=== PATIENT | female | born 1970 | race Caucasian/White ===

== ENCOUNTER 2016-12-11 07:52 | Emergency (ER) | payer BC ==
--- NOTE | 2016-12-11 08:56 | UC ---
Back Pain HPI - History of Current Complaint Chief Complaint: UCLowerExtremity Stated Complaint: RIGHT HIP AND LEG PAIN Time Seen by Provider: 12/11/16 08:54 - Allergies/Home Medications Allergies/Adverse Reactions: Allergies Allergy/AdvReac Type Severity Reaction Status Date / Time Clarithromycin [From Biaxin] Allergy See Comment Verified 12/11/16 08:12 Home Medications: Home Medications Amlodipine Besylate [Norvasc 5 mg tab] 5 mg PO DAILY 12/11/16 [History Confirmed 12/11/16] Atorvastatin* [Lipitor*] 40 mg PO DAILY 12/11/16 [History Confirmed 12/11/16] Ibuprofen [Advil] 800 mg PO TID PRN 12/11/16 [History Confirmed 12/11/16] Levothyroxine TAB* [Synthroid TAB*] 112 mcg PO DAILY 12/11/16 [History Confirmed 12/11/16] Liraglutide [Victoza] 18 mg SC 12/11/16 [History] Lisinopril TAB* [Prinivil TAB*] 10 mg PO DAILY 12/11/16 [History Confirmed 12/11] PARoxetine HCL TAB* [Paxil TAB*] 30 mg PO DAILY 12/11/16 [History Confirmed ] Pantoprazole TAB (NF) [Protonix TAB (NF)] 40 mg PO DAILY 12/11/16 [History Confirmed 12/11/16] Ranitidine TAB (NF) [Zantac TAB (NF)] 150 mg PO BID 12/11/16 [History Confirmed 12/11/16] clonazePAM TAB(*) [KlonoPIN TAB(*)] 0.5 mg PO DAILY 12/11/16 [History Confirmed 12/11/16] glipiZIDE TAB* [Glucotrol TAB*] 5 mg PO DAILY 12/11/16 [History Confirmed ] metFORMIN* [Glucophage 1000 MG TAB *] 1,000 mg PO BID 12/11/16 [History Confirmed 12/11/16] PMH/Surg Hx/FS Hx/Imm Hx - Surgical History Surgical History: Yes Surgery Procedure, Year, and Place: 2 . gastric bypass. C4-6 fusion. joseline - Social History Alcohol Use: None Substance Use Type: None Smoking Status (MU): Never Smoked Tobacco Physical Exam Vital Signs: Initial Vital Signs Temp 98.6 F 12/11/16 07:58 Pulse 75 12/11/16 07:58 Resp 18 12/11/16 07:58 BP 144/98 12/11/16 07:58 Pulse Ox 98 12/11/16 07:58
--- NOTE | 2016-12-11 09:10 | UC ---
Hip/Pelvis Pain - HPI Summary HPI Summary: 46 y/o female presents to the urgent care c/o RT hip pain since Sunday. She recently started walking on a daily basis to do some exercise. However Sunday, her pain became worse with bending and stretching. Pain is 6/10 at rest and 10/ 10 w/ bending. Pain radiates to her lower back and lateral side of RT leg. Pt denies numbness, tingling over the RT lower leg, bowel or urinary incontinence, SOB, chest pain, N/V/D, abdominal pain. Pt has taking Motrin to alleviate symptoms. - History Of Current Complaint Chief Complaint: UCLowerExtremity Stated Complaint: RIGHT HIP AND LEG PAIN Time Seen by Provider: 12/11/16 08:54 Hx Obtained From: Patient Hx Last Menstrual Period: Pt had a uterine ablation 2 years ago ?: No Onset/Duration: Gradual Onset, Lasting Days, Still Present Timing: Constant Severity Initially: Mild Severity Currently: Moderate Pain Intensity: 6 - rest Pain Scale Used: 0-10 Numeric Location: Discrete At: - RT hip Character Of Pain: Sharp Aggravating Factor(s): Movement Alleviating Factor(s): Rest, OTC Medications Associated Signs And Symptoms: Positive: Negative - Risk Factors Septic Arthritis Risk Factor: Negative - Allergies/Home Medications Allergies/Adverse Reactions: Allergies Allergy/AdvReac Type Severity Reaction Status Date / Time Clarithromycin [From Biaxin] Allergy See Comment Verified 12/11/16 08:12 Home Medications: Home Medications Amlodipine Besylate [Norvasc 5 mg tab] 5 mg PO DAILY 12/11/16 [History Confirmed 12/11/16] Atorvastatin* [Lipitor 40 MG*] 40 mg PO DAILY 12/11/16 [History Confirmed ] Levothyroxine TAB* [Synthorid 112 MCG TAB*] 112 mcg PO DAILY 12/11/16 [History Confirmed 12/11/16] Liraglutide [Victoza] 18 mg SC 12/11/16 [History] Lisinopril TAB* [Prinivil TAB 10 MG*] 10 mg PO DAILY 12/11/16 [History Confirmed 12/11/16] PARoxetine HCL TAB* [Paxil TAB*] 30 mg PO DAILY 12/11/16 [History Confirmed ] Pantoprazole TAB (NF) [Protonix TAB (NF)] 40 mg PO DAILY 12/11/16 [History Confirmed 12/11/16] Ranitidine TAB (NF) [Zantac TAB (NF)] 150 mg PO BID 12/11/16 [History Confirmed 12/11/16] clonazePAM TAB(*) [Klonopin TAB(*)] 0.5 mg PO DAILY 12/11/16 [History Confirmed 12/11/16] glipiZIDE TAB* [Glucotrol TAB*] 5 mg PO DAILY 12/11/16 [History Confirmed ] metFORMIN* [Glucophage 1000 MG TAB *] 1,000 mg PO BID 12/11/16 [History Confirmed 12/11/16] PMH/Surg Hx/FS Hx/Imm Hx Endocrine History: Diabetes, Hypothyroidism Cardiovascular History: Hypertension - Surgical History Surgical History: Yes Surgery Procedure, Year, and Place: 2 . gastric bypass. C4-6 fusion. joseline - Family History Known Family History: Positive: Hypertension - Social History Occupation: Employed Full-time Lives: With Family Alcohol Use: None Substance Use Type: None Smoking Status (MU): Never Smoked Tobacco Review of Systems Constitutional: Negative Skin: Negative Eyes: Negative ENT: Negative Respiratory: Negative Cardiovascular: Negative Gastrointestinal: Negative Genitourinary: Negative Motor: Negative Neurovascular: Negative Musculoskeletal: Other: - RT Hip pain s/p walking Neurological: Negative Psychological: Negative All Other Systems Reviewed And Are Negative: Yes Physical Exam Triage Information Reviewed: Yes Appearance: Well-Appearing, No Pain Distress, Well-Nourished, Obese Vital Signs: Initial Vital Signs Temp 98.6 F 12/11/16 07:58 Pulse 75 12/11/16 07:58 Resp 18 12/11/16 07:58 BP 144/98 12/11/16 07:58 Pulse Ox 98 12/11/16 07:58 Vital Signs Reviewed: Yes Eye Exam: Normal Eyes: Positive: Conjunctiva Clear - PERRLA, EOMI, fundi grossly normal ENT Exam: Normal ENT: Positive: Normal ENT inspection, Hearing grossly normal, Pharynx normal, TMs normal Dental Exam: Normal Neck exam: Normal Neck: Positive: Supple, Nontender, No Lymphadenopathy Respiratory Exam: Normal Respiratory: Positive: Chest non-tender, Lungs clear, Normal breath sounds Cardiovascular Exam: Normal Cardiovascular: Positive: RRR, No Murmur, Pulses Normal Abdominal Exam: Normal Abdomen Description: Positive: Nontender, No Organomegaly, Soft. Negative: CVA Tenderness (R), CVA Tenderness (L) Bowel Sounds: Positive: Present Musculoskeletal Exam: Normal Musculoskeletal: Positive: Other: - RT hip with point tenderness at the level of the piriformis muscle and gluteus burton. no swelling observed. Limited ROM due to pain, Pt feels relief when lower leg raised, bend and hyperabducted. Neurological Exam: Normal Psychological Exam: Normal Skin Exam: Normal Hip Injury Course/Dx - Course Course Of Treatment: 46 y/o female presents to the urgent care c/o RT hip pain since Sunday. She recently started walking on a daily basis to do some exercise. However Sunday, her pain became worse with bending and stretching. Pain is 6/10 at rest and 10/10 w/ bending. Pain radiates to her lower back and lateral side of RT leg. Pt denies numbness, tingling over the RT lower leg, bowel or urinary incontinence,SOB, chest pain, N/V/D, abdominal pain. Pt has taking Motrin to alleviate symptoms. PE performed. tendernes over the piriformis muscle and masximus gluteus. Pt Rx Naproxen PO and Flexeril PO to alleviate symptoms. Given PT referral for further evalution and treatment. Avoid exercises until symptoms resolve. Pt understood and agreed - Differential Dx/Diagnosis Differential Diagnosis/HQI/PQRI: Arthritis, Contusion, Sciatica, Sprain, Strain Provider Diagnoses: 1- RT hip pain, Piriformis syndrome - Physician Notification/Consults Discussed Patient Care With: Yudith Marmolejo - DR Marmolejo agreed withe Pt's care and treatment. Discharge - Discharge Plan Condition: Stable Disposition: HOME Prescriptions: Cyclobenzaprine TAB* [Flexeril 10 MG TAB*] 10 mg PO TID PRN #15 tab PRN Reason: Spasms Naproxen TAB* [Naprosyn 250 mg TAB*] 500 mg PO Q8H PRN #30 tab PRN Reason: Pain Patient Education Materials: Piriformis Syndrome (ED) Referrals: Dee Ardon [Primary Care Provider] - 1 Week Additional Instructions: 1-Please take medication after meals as directed to alleviate pain. Rest or do water exercise 2-F/u PT referral for further evaluation 3-If symptoms do not improve f/u w/ your Osteopath for further evaluation and treatment
[2016-12-11] MEDS ORDERED: Ketorolac INJ* 60 MG/2 ML VIAL IM ONE (09:59)
[2016-12-11 10:21] VITALS: BP 143/93
== END 2016-12-11 10:21 | disposition home or self-care (01) ==
LOC: UCCORT 07:52
DX: M25.551 Pain in right hip (principal); Z88.1 Allergy status to other antibiotic agents
CPT/HCPCS: 96372; 99202; G0463; J1885

== ENCOUNTER 2019-04-19 10:39 | Emergency (ER) | payer BC ==
--- OUTSIDE RECORDS SUMMARY | 2019-04-19 10:51 | XMS REPORT | Continuity of Care Document ---
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 Vitamin D deficiency Onset: 11/14/2011 Essential hypertension Hemalatha Pete Onset: 09/26/2017 Pure hypercholesterolemia Hemalatha Pete Onset: 09/26/2017 Liver function tests abnormal Raffy Pryor RPA Onset: 11/13/2017 Taking medication Raffy Pryor RPA Onset: 11/13/2017 Diarrhea Raffy Pryor RPA Onset: 11/13/2017 Abnormal findings diagnostic imaging Raffy Pryor RPA Onset: 11/13/2017 heart+coronary circulat Disorder of magnesium metabolism Raffy Pryor RPA Onset: 11/20/2017 Malaise and fatigue Raffy Pryor RPA Onset: 11/20/2017 Disturbance in sleep behavior Raffy Pryor RPA Onset: 11/27/2017 Social History Type Date Description Comments Sex Unknown ETOH Use Denies alcohol use Tobacco Use Start: Unknown Patient has never smoked TRIED IT A TIME OR TWO BUT THAT WAS IT Recreational Drug Use Denies Drug Use Smoking Status Reviewed: 03/12/19 Patient has never smoked TRIED IT A TIME OR TWO BUT THAT WAS IT Tattoo/Piercing Pierced ears Allergies, Adverse Reactions, Alerts Active Allergies Reaction Severity Comments Date Clarithromycin hypertension 05/10/2010 Ciprofloxacin Hydrochloride Unknown 01/13/2008 Nitrofurantoin Unknown 01/13/2008 Hydrocodone Bitartrate rash 01/13/2008 Medications Active Medications SIG Qnty Indications Ordering Date Provider Diflucan 1 every day x 1 1tabs B37.2 Yanci, 03/12/2019 150mg Tablets dose Hemalatha Naproxen 1 by mouth twice a 60tabs M54.9 WillTasneem, 03/12/2019 500mg Tablets day with food Hemalatha Azithromycin 2 today then one 6tabs J06.9 Marie, 03/05/2019 250mg daily for 5 days Aide DELIVERY TABLE OPERATOR Tablets Triamcinolone apply twice a day 454[facility] 02/11/2019 Acetonide To Rash On Neck, Hemalatha 0.1% Cream Knees, Bottom Prednisone 1 Daily For 3 Days 6tabs R21 WillTasneem, 02/11/2019 20mg Tablets Hemalatha Lidocaine HCL Apply To Affected 150ml [facility], 01/31/2019 Urethral/Mucosal Area 2 Times A Day Hemalatha 2% Gel as Needed Lantus Solostar inject 15 units at 15units [facility], 12/04/2018 bedtime Hemalatha 100Unit/ML Solution Pen-Inject Ambien 1 at bedtime 30tabs Yanci, 12/04/2018 5mg Tablets Hemalatha Tramadol HCL 1 by mouth Daily 30tabs G60.9 WillTasneem, 12/04/2018 50mg Tablets For Leg Pains Hemalatha Trulicity inject once weekly 4units Yanci, 12/04/2018 0.75mg/0.5ML Hemalatha Solution Pen-Inject Gabapentin 1 by mouth three 90caps Yanci, 10/16/2018 100mg Capsules times a day Hemalatha Topiramate 1 by mouth twice a 180tabs R51 Yanci, 10/16/2018 25mg Tablets day Hemalatha Cyclobenzaprine HCL take 1 tablet by 90tabs M54.2 Yanci, 2018 10mg mouth three times Hemalatha Tablets a day maximum daily dose of 3 Pantoprazole Sodium 1 by mouth every 90tabs Yanci, 07/04/2018 40mg day Hemalatha Tablets DR Benoit apply twice a day 50units L03.313 [facility], 06/04/2018 1% Cream as needed Hemalatha BD Pen use daily with 100units E11.65 [facility], 05/27/2018 Needle/Lexie/Ultra Victoza Hemalatha -Fine/32G X 4mm 32G X 4 mm Misc Onetouch Verio test twice a day 200units Tyler, 03/18/2018 Strips MONTSE Johnson Onetouch Ultrasoft test 2 times daily 200units Yanci, 03/18/2018 Lancets Hemalatha Mis Onetouch Verio as directed 1units E11.9 [facility]is[facility]as[facility]em, 03/18/2018 w/Device Hemalatha Kit Insulin Syringe Use With Insulin 200units Yanci, 02/26/2018 31G X Hemalatha /16" 1 ML [facility] Vitamin D 1 capsule weekly 12caps Yanci, 02/13/2018 (Ergocalciferol) Hemalatha [id number] Capsules Cyanocobalamin inject 1 3ml Marie, 01/08/2018 1000mcg/ML milliliters CHAD Noble Solution monthly Fioricet 1 by mouth three 90caps [facility], 12/18/2017 50-300-40mg times a day as Hemalatha Capsules needed Freestyle Lite Test test twice a day, 200units [facility], 12/12/2017 as needed Hemalatha Strips Atorvastatin Calcium 1 by mouth every 90tabs Tyler, 11/13/2017 40mg day Elizabeth, CAT BREEDER Tablets Lisinopril 1 by mouth every 90tabs Yanci, 10/04/2017 10mg Tablets day Hemalatha Paroxetine HCL take by mouth one 90tabs Unknown 30mg tablet daily Tablets Norvasc 1 by mouth every 90tabs Yanci, 5mg Tablets day Hemalatha Clonazepam 1 by mouth twice a 60tabs Unknown 0.5mg Tablets day as needed anxiety Metoprolol Succinate 1 by mouth every 90tabs Yanci, ER day Hemalatha 25mg Tablets ER 24HR Levothyroxine Sodium take by mouth one 90tabs Yanci, tablet daily Hemalatha 112mcg Tablets History Medications Diflucan 1 every day x 1tabs Hemalatha Pete 12/31/2018 - 150mg 1 dose 02/11/2019 Tablets Lidocaine apply to 30gm Hemalatha Pete 10/08/2018 - (Anorectal) rectal area as 01/31/2019 5% Cream needed Azithromycin 2 today, 1 6tabs H66.91 Hemalatha Pete 09/10/2018 - 250mg daily for 4 12/04/2018 Tablets days Immunizations CPT Code Status Date Vaccine Lot # [id number] Given 11/18/2014 TdaP Immunization Vital Signs Date Vital Result Comment 03/12/2019 11:00am Height 59 inches 4'11" Weight 215.00 lb BP Systolic 138 mmHg BP Diastolic 74 mmHg Heart Rate 80 /min Respiratory Rate 18 /min Pain Level Average Daily 7 BMI (Body Mass Index) 43.4 kg/m2 03/05/2019 10:30am Height 59 inches 4'11" Weight 218.00 lb BP Systolic 132 mmHg BP Diastolic 76 mmHg Heart Rate 76 /min Respiratory Rate 16 /min Pain Level Average Daily 4 BMI (Body Mass Index) 44.0 kg/m2 Results Test Acquired Date Facility Test Result H/L Range Note Laboratory test 12/24/2018 [facility] C-Peptide 3.4 ng/mL 0.8-5.2 finding Laboratory test 12/24/2018 [facility] Glucose Poc 268 mg/dL High 70- 140 finding Hemoglobin A1c 12/24/2018 [facility] Hgb A1c MFr 10.4 % High 4.0-6.0 Bld Est. average glucose Bld gHb Est-mCnc 252 mg/dL High <126 Procedures Date Code Description Status 04/30/2016 [id number] Mammogram Completed Medical Devices Description No Information Available Encounters Type Date Location Provider Dx Diagnosis Office Visit 03/05/2019 Main Office Aide Marie J06.9 Acute upper 10:00a DELIVERY TABLE OPERATOR respiratory infection, unspecified Z68.41 Body mass index (BMI) 40.0-44.9, adult Office Visit 02/11/2019 11:30a Main Office Hemalatha Pete R21 Rash and other nonspecific skin eruption Z68.41 Body mass index (BMI) 40.0-44.9, adult Office Visit 12/04/2018 8:30a Main Office Hemalatha Pete R09.02 Hypoxemia E11.65 Type 2 diabetes mellitus with hyperglycemia G60.9 Hereditary and idiopathic neuropathy, unspecified N18.3 Chronic kidney disease, stage 3 (moderate) Z68.41 Body mass index (BMI) 40.0-44.9, adult Office Visit 10/16/2018 10:00a Main Office Hemalatha Pete G60.9 Hereditary and idiopathic neuropathy, unspecified E11.65 Type 2 diabetes mellitus with hyperglycemia R51 Headache R06.2 Wheezing Z68.41 Body mass index (BMI) 40.0-44.9, adult Office Visit 09/10/2018 Main Office Hemalatha Pete H66.91 Otitis media, 11:15a unspecified, right ear M54.2 Cervicalgia Z68.41 Body mass index (BMI) 40.0-44.9, adult Assessments Date Code Description Provider 03/12/2019 B37.2 Candidiasis of skin and nail Hemalatha Pete 03/12/2019 M54.9 Dorsalgia, unspecified Hemalatha Pete 03/12/2019 Z68.41 Body mass index (BMI) 40.0-44.9, adult Hemalatha Pete 03/05/2019 J06.9 Acute upper respiratory infection, Aide Marie FNP unspecified 03/05/2019 Z68.41 Body mass index (BMI) 40.0-44.9, adult Aide Marie FNP 02/11/2019 R21 Rash and other nonspecific skin eruption Hemalatha Pete 02/11/2019 Z68.41 Body mass index (BMI) 40.0-44.9, adult Hemalatha Pete 12/04/2018 R09.02 Hypoxemia Hemalatha Pete 12/04/2018 E11.65 Type 2 diabetes mellitus with hyperglycemia Hemalatha Pete 12/04/2018 G60.9 Hereditary and idiopathic neuropathy, Hemalatha Pete unspecified 12/04/2018 N18.3 Chronic kidney disease, stage 3 (moderate) Hemalatha Pete 12/04/2018 Z68.41 Body mass index (BMI) 40.0-44.9, adult Hemalatha Pete 10/16/2018 G60.9 Hereditary and idiopathic neuropathy, Hemalatha Pete unspecified 10/16/2018 E11.65 Type 2 diabetes mellitus with hyperglycemia Yanci Hemalatha 10/16/2018 R51 Headache YanciHemalatha 10/16/2018 R06.2 Wheezing YanciHemalatha 10/16/2018 Z68.41 Body mass index (BMI) 40.0-44.9, adult Hemalatha Pete 09/10/2018 H66.91 Otitis media, unspecified, right ear YanciHemalatha 09/10/2018 M54.2 Cervicalgia YanciHemalatha 09/10/2018 Z68.41 Body mass index (BMI) 40.0-44.9, adult [facility] Plan of Treatment 03/12/2019 - Yanci EnzpqG70.2 Candidiasis of skin and nailNew Medication:Diflucan 150 mg - 1 every day x 1 doseComments:EAT AUILCTO46.9 Dorsalgia, unspecifiedNew Medication:Naproxen 500 mg - 1 by mouth twice a day with foodNew Therapy:Physical TherapyComments:HAS BEEN ON MOTRINCONT WITH ESLWDYOQWGSBBCMH68.41 Body mass index (BMI) 40.0-44.9, adult Goals 03/12/2019 - FigueroaTasneem, AhbpfT91.9 Dorsalgia, unspecifiedHAS GABAPENTIN AT HOME Functional Status Description No Information Available Mental Status Mental Condition Comment Date Status None Active Referrals Refer to Reason for Referral Status Appt Date Yasemin Matute WHEEZING Closed 12/05/2018 [address] [place] [address] [phone] Sindi Collier KIDNEY ISSUES [id number] lvm for patient w/ appt Closed 11/[id number] [facility], [address] [phone]
--- OUTSIDE RECORDS SUMMARY | 2019-04-19 10:51 | XMS REPORT | Continuity of Care Document ---
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 Vitamin D deficiency Onset: 11/14/2011 Essential hypertension Hemalatha Pete Onset: 09/26/2017 Pure hypercholesterolemia Hemalatha Pete Onset: 09/26/2017 Liver function tests abnormal Raffy Pryor RPA Onset: 11/13/2017 Taking medication Raffy Proyr RPA Onset: 11/13/2017 Diarrhea Raffy Pryor RPA [...] Use Denies Drug Use Smoking Status Reviewed: 03/05/19 Patient has never smoked TRIED IT A TIME OR TWO BUT THAT WAS IT Tattoo/Piercing Pierced ears Allergies, Adverse Reactions, Alerts Active Allergies Reaction Severity Comments Date Clarithromycin hypertension 05/10/2010 Ciprofloxacin Hydrochloride Unknown 01/13/2008 Nitrofurantoin Unknown 01/13/2008 Hydrocodone Bitartrate rash 01/13/2008 Medications Active Medications SIG Qnty Indications Ordering Date Provider Azithromycin 2 today then one 6tabs J06.9 Frank, 03/05/2019 250mg daily for 5 days CHAD Noble Tablets Triamcinolone apply twice a day 454gm R21 Yanci, 02/11/2019 Acetonide To Rash On Neck, Hemalatha 0.1% Cream Knees, Bottom Prednisone 1 Daily For 3 Days 6tabs R21 Yanci, 02/11/2019 20mg Tablets Hemalatha L[facility]CL [facility] 01/[facility]2019 Urethral/Mucosal Area 2 Times A Day Hemalatha 2% Gel as Needed Trulicity inject once weekly 4units Yanci, 12/04/2018 0.75mg/0.5ML Hemalatha Solution Pen-Inject Tramadol HCL 1 by mouth Daily 30tabs G60.9 WillTasneem, 12/04/2018 50mg Tablets For Leg Pains Hemalatha Ambien 1 at bedtime 30tabs Yanci, 12/04/2018 5mg Tablets Hemalatha Lantus Solostar inject 15 units at [facility], 12/04/2018 bedtime Hemalatha 100Unit/ML Solution Pen-Inject Gabapentin 1 by mouth three 90caps Yanci, 10/16/2018 100mg Capsules times a day Hemalatha Topiramate 1 by mouth twice a 180tabs R51 [facility], 10/16/2018 25mg Tablets day Hemalatha Cyclobenzaprine HCL take 1 tablet by 90tabs M54.2 [facility], 2018 10mg mouth three times Hemalatha Tablets a day maximum daily dose of 3 Pantoprazole Sodium 1 by mouth every 90tabs Yanci, 07/04/2018 40mg day Hemalatha Tablets DR Benoit apply twice a day 50units L03.313 [facility], 06/04/2018 1% Cream as needed Hemalatha BD Pen use daily with 100units E11.65 Yanci, 05/27/2018 Needle/Lexie/Ultra Victoza Hemalatha -Fine/32G X 4mm 32G X 4 mm Misc Onetouch Verio test twice a day 200units Jayson, 03/18/2018 Strips MONTSE Johnson Onetouch Ultrasoft test 2 times daily 200units Yanci, 03/18/2018 Lancets Hemalatha [facility] Onetouch Verio as directed 1units E11.9 Yanci, 03/18/2018 w/Device Hemalatha Kit Insulin Syringe Use With Insulin 200units Yanci, 02/26/2018 31G X Hemalatha 16" 1 ML Misc Vitamin D 1 capsule weekly 12caps Yanci, 02/13/2018 (Ergocalciferol) Hemalatha 21921Auic Capsules Cyanocobalamin inject 1 3ml Marie, 01/08/2018 1000mcg/ML milliliters Aide AIRPLANE FLIGHT ATTENDANT SUPERVISOR Solution monthly Fioricet 1 by mouth three 90caps Yanci, 12/18/2017 50-300-40mg times a day as Hemalatha Capsules needed Freestyle Lite Test test twice a day, 200units Yanci, 12/12/2017 as needed Hemalatha Strips Atorvastatin Calcium 1 by mouth every 90tabs Jayson, 11/13/2017 40mg day MONTSE Johnson Tablets Lisinopril 1 by mouth every 90tabs [...] CPT Code Status Date Vaccine Lot # [id number] Given 11/18/2014 TdaP Immunization Vital Signs Date Vital Result Comment 03/05/2019 10:30am Height 59 inches 4'11" Weight 218.00 lb BP Systolic 132 mmHg BP Diastolic 76 mmHg Heart Rate 76 /min Respiratory Rate 16 /min Pain Level Average Daily 4 BMI (Body Mass Index) 44.0 kg/m2 02/11/2019 11:39am Height 59 inches 4'11" Weight 219.00 lb BP Systolic 130 mmHg BP Diastolic 84 mmHg Heart Rate 84 /min Respiratory Rate 18 /min Pain Level Average Daily 0 Itch Is 10 BMI (Body Mass Index) 44.2 kg/m2 Results Test Acquired Date Facility Test Result H/L Range Note Laboratory test 12/24/2018 [facility] C-Peptide 3.4 ng/mL 0.8-5.2 finding Laboratory test 12/24/2018 [facility] Glucose Poc 268 mg/dL High 70- 140 finding Hemoglobin A1c 12/24/2018 [facility] Hgb A1c MFr 10.4 % High 4.0-6.0 Bld Est. average glucose Bld gHb Est-mCnc 252 mg/dL High <126 Procedures Date Code Description Status 04/30/2016 03142061 Mammogram Completed Medical Devices Description No Information Available Encounters Type Date Location Provider Dx Diagnosis Office Visit 03/05/2019 Main Office Aide Marie J06.9 Acute upper 10:00a AIRPLANE FLIGHT ATTENDANT SUPERVISOR respiratory infection, unspecified Z68.41 Body mass index [...] 40.0-44.9, adult Assessments Date Code Description Provider 03/05/2019 J06.9 Acute upper respiratory infection, Aide [...] 2 diabetes mellitus with hyperglycemia Hemalatha Pete 10/16/2018 R51 Headache Hemalatha Pete 10/16/2018 R06.2 Wheezing Hemalatha Pete 10/16/2018 Z68.41 Body mass index (BMI) 40.0-44.9, adult Hemalatha Pete 09/10/2018 H66.91 Otitis media, unspecified, right ear Hemalatha Pete 09/10/2018 M54.2 Cervicalgia Hemalatha Pete 09/10/2018 Z68.41 Body mass index (BMI) 40.0-44.9, adult Hemalatha Pete Plan of Treatment 03/05/2019 - Marie Aide, FNPJ06.9 Acute upper respiratory infection, unspecifiedNew Medication:Azithromycin 250 mg - 2 today then one daily for 5 daysComments:WASH HANDSSTEAMDRINK WATER, TEA AND KAKKYY37.41 Body mass index ( BMI) 40.0-44.9, adult Functional Status Description No Information Available Mental Status Mental Condition Comment Date Status None Active Referrals Refer to Reason for Referral Status Appt Date Yasemin Matute WHEEZING Closed 12/05/2018 [address] [place] [address] [phone] Sindi Collier KIDNEY ISSUES [id number] lvm for patient w/ appt Closed 11/26 information. TB [address] [facility], [address] [phone]
--- OUTSIDE RECORDS SUMMARY | 2019-04-19 10:51 | XMS REPORT | Continuity of Care Document ---
:1970 External Reference #:[id number] Author Name Hemalatha Pete Address [address] [place] [address] Care Team Providers Name Role Phone Braxton Blakely Care Team Information Video Control Engineer [phone] Liseth Michelle Care Team Information Video Control Engineer [phone] Lyndon Wells MD - Nephrology Care Team Information Video Control Engineer [phone] Problems Active Problems Provider Date Chest pain [...] Medications SIG Qnty Indications Ordering Date Provider Vitamin D take 1 capsule by 12caps Yanci, 03/17/2019 (Ergocalciferol) mouth weekly Hemalatha 1.25mg (40845 Ut) Capsules Diflucan 1 every day x 1 1tabs B37.2 Yanci, 03/12/2019 150mg Tablets dose Hemalatha Naproxen 1 by mouth twice a 60tabs M54.9 WillTasneem, 03/12/2019 500mg Tablets day with food Hemalatha Azithromycin 2 today then one 6tabs J06.9 Frank, 03/05/2019 250mg daily for 5 days CHAD Noble Tablets Triamcinolone apply twice a day 454gm [facility]21 [facility] 02/11/2019 Acetonide To Rash On Neck, Hemalatha 0.1% Cream Knees, Bottom Prednisone 1 Daily For 3 Days 6tabs R21 Yanci, 02/11/2019 20mg Tablets Hemalatha Lidocaine HCL Apply To Affected [facility]ml [facility], 01/31/2019 Urethral/Mucosal Area 2 Times A Day Hemalatha 2% Gel as Needed Trulicity inject once weekly 4units Yanci, 12/04/2018 0.75mg/0.5ML Hemalatha Solution Pen-Inject Tramadol HCL 1 by mouth Daily 30tabs G60.9 Yanci, 12/04/2018 50mg Tablets For Leg Pains Hemalatha Ambien 1 at bedtime 30tabs Yanci, 12/04/2018 5mg Tablets Hemalatha Lantus Solostar inject 15 units at 15units WillTasneem, 12/04/2018 bedtime Hemalatha 100Unit/ML Solution Pen-Inject Gabapentin [...] Pantoprazole Sodium 1 by mouth every 90tabs [facility], 07/04/2018 40mg day Hemalatha Tablets DR Benoit apply twice a day 50units L03.313 [facility], 06/04/2018 1% Cream as needed Hemalatha BD Pen use daily with 100units E11.65 Yanci, 05/27/2018 Needle/Lexie/Ultra Victoza Hemalatha -Fine/32G X 4mm 32G X 4 mm Misc Onetouch Verio as directed 1units E11.9 Yanci, 03/18/2018 w/Device Hemalatha Kit Onetouch Ultrasoft test 2 times daily 200units Yanci, 03/18/2018 Lancets Hemalatha Misc Onetouch Verio test twice a day 200units Tyler, 03/18/2018 Strips Elizabeth, WHEELCHAIR VAN DRIVER Insulin Syringe Use With Insulin 200units Yanci, 02/26/2018 31G X Hemalatha 5/16" 1 ML Misc Cyanocobalamin inject 1 3ml Marie, 01/08/2018 1000mcg/ML milliliters Aide NUCLEAR REACTOR TECHNICIAN Solution monthly Fioricet 1 by mouth three 90caps Yanci, 12/18/2017 50-300-40mg times a day as Hemalatha Capsules needed Freestyle Lite Test test twice a day, 200units Yanci, 12/12/2017 as needed Hemalatha Strips Atorvastatin Calcium 1 by mouth every 90tabs Jayson, 11/13/2017 40mg day Elizabeth, WHEELCHAIR VAN DRIVER Tablets Lisinopril 1 by mouth every 90tabs [...] History Medications Diflucan 1 every day x 1 1tabs Hemalatha Pete 12/31/2018 - 150mg dose 02/11/2019 Tablets Lidocaine apply to rectal 30gm Hemalatha Pete 10/08/2018 - (Anorectal) area as needed 01/31/2019 5% Cream Immunizations CPT Code Status Date Vaccine Lot # [id number] Given 11/18/2014 TdaP Immunization Vital Signs Date [...] Result H/L Range Note Laboratory test 12/24/2018 [facility] C-Peptide 3.4 ng/mL 0.8-5.2 finding Laboratory test 12/24/2018 [facility] Glucose Poc 268 mg/dL High 70- 140 finding Hemoglobin A1c 12/24/2018 [facility] Hgb A1c MFr 10.4 % High 4.0-6.0 Bld Est. average glucose Bld gHb Est-mCnc 252 mg/dL High <126 Procedures Date Code Description Status 04/30/2016 [id number] Mammogram Completed Medical Devices Description No Information Available Encounters Type Date Location Provider Dx Diagnosis Office Visit 03/12/2019 Main Office Yanci, B37.2 Candidiasis of skin 10:45a Hemalatha and nail M54.9 Dorsalgia, unspecified Z68.41 Body mass index (BMI) 40.0-44.9, adult Office Visit 03/05/2019 10:00a Main Office Aide Marie J06.9 Acute upper NUCLEAR REACTOR TECHNICIAN respiratory infection, unspecified Z68.41 Body mass index [...] 40.0-44.9, adult Hemalatha Pete Plan of Treatment 03/12/2019 - Hemalatha PeteB37.2 Candidiasis of skin and nailNew Medication:Diflucan 150 mg - 1 every day x 1 doseComments:EAT ZUBODAH23.9 Dorsalgia, unspecifiedNew Medication:Naproxen 500 mg - 1 by mouth twice a day with foodNew Therapy:Physical TherapyComments:HAS BEEN ON MOTRINCONT WITH SXVDMPXSMSYBEKLG61.41 Body mass index (BMI) 40.0-44.9, adult Goals 03/12/2019 - Hemalatha PeteM54.9 Dorsalgia, unspecifiedHAS GABAPENTIN AT HOME Functional Status Description No Information Available Mental Status Mental Condition Comment Date Status None Active Referrals Refer to Reason for Referral Status Appt Date Yasemin Matute WHEEZING Closed 12/05/2018 [address] [place] [address] [phone] Sindi Collier KIDNEY ISSUES [id number] lvm for patient w/ appt Closed 11/26 information. [address] [facility], [address] [phone]
--- NOTE | 2019-04-19 11:38 | UC ---
Respiratory Complaint HPI - HPI Summary HPI Summary: Per advertising inserter: "Nonproductive cough since last Sunday04/12/19. Cough getting worse and now getting sweats/chills, bodyaches and feels more tired. Using ventolin inhaler prn w/ no cough relief. " -here w/ her who is also being seen for resp sx. -denies fever on temporal scanner at home. + fatigue, incerased SOB with exertion + DM - last a1c was 10 -sugars have been high in high 200s. -has ahd to use pred in past that did elev BSs a little. + body aches. - - History of Current Complaint Chief Complaint: UCRespiratory Stated Complaint: COUGH,WEAKNESS,BODY ACHES Time Seen by Provider: 04/19/19 11:31 Hx Last Menstrual Period: hx ablation Pain Intensity: 9 - Allergies/Home Medications Allergies/Adverse Reactions: Allergies Allergy/AdvReac Type Severity Reaction Status Date / Time ciprofloxacin Allergy Severe Diarrhea Verified 04/19/19 11:04 clarithromycin Allergy See Comment Verified 04/19/19 11:04 Home Medications: Home Medications Albuterol HFA INHALER* [Ventolin HFA Inhaler*] 2 puff QID PRN 04/19/19 [History Confirmed 04/19/19] Dulaglutide [Trulicity] 0.75 mg SQ WEEKLY 04/19/19 [History Confirmed 04/19/19] Insulin GLARGINE(*) [Lantus(*)] 20 units SUBCUT QPM 04/19/19 [History Confirmed 04/19/19] Oxygen 2 BEDTIME 04/19/19 [History] PMH/Surg Hx/FS Hx/Imm Hx Previously Healthy: Yes Endocrine History: Diabetes, Thyroid Disease, Dyslipidemia Cardiovascular History: Hypertension Respiratory History: Other - AMAURY GI/ History: Gastroesophageal Reflux - Surgical History Surgical History: Yes Surgery Procedure, Year, and Place: 2 . gastric bypass. C4-6 fusion. joseline - Family History Known Family History: Positive: Hypertension - Social History Alcohol Use: None Substance Use Type: None Smoking Status (MU): Never Smoked Tobacco Review of Systems All Other Systems Reviewed And Are Negative: Yes Constitutional: Positive: Fever, Chills, Fatigue Skin: Negative: Rash Eyes: Positive: Negative ENT: Positive: Sore Throat, Ear Ache Respiratory: Positive: Shortness Of Breath, Cough Cardiovascular: Negative: Palpitations, Chest Pain Gastrointestinal: Positive: Negative. Negative: Abdominal Pain, Vomiting, Diarrhea, Nausea Genitourinary: Positive: Negative. Negative: Dysuria Motor: Positive: Negative Neurovascular: Positive: Negative Musculoskeletal: Positive: Myalgia Neurological: Positive: Negative Psychological: Positive: Negative Is Patient Immunocompromised?: No Physical Exam Triage Information Reviewed: Yes Appearance: No Pain Distress, Well-Nourished, Ill-Appearing - mild Vital Signs: Initial Vital Signs Temp 97.4 F 04/19/19 11:07 Pulse 101 04/19/19 11:07 Resp 20 04/19/19 11:07 BP 111/70 04/19/19 11:07 Pulse Ox 95 04/19/19 11:07 Vital Signs Reviewed: Yes Eye Exam: Normal ENT: Positive: Pharyngeal erythema - mild, Nasal congestion, TMs normal - w/ some cerumen, Uvula midline. Negative: TM bulging, TM dull, TM red, Tonsillar swelling, Tonsillar exudate, Sinus tenderness Neck exam: Normal Neck: Positive: Supple, Nontender, No Lymphadenopathy Respiratory Exam: Normal Respiratory: Positive: Lungs clear, Normal breath sounds, No respiratory distress, No accessory muscle use, Decreased breath sounds - mild. Negative: Crackles, Rhonchi, Stridor, Wheezing Cardiovascular Exam: Normal Cardiovascular: Positive: RRR Abdominal Exam: Normal Abdomen Description: Positive: Nontender, Soft Musculoskeletal Exam: Normal Neurological Exam: Normal Psychological Exam: Normal Skin Exam: Normal Skin: Negative: Rashes Respiratory Course/Dx - Course Course Of Treatment: + influenza A - sx strated 6 days ago. too late for treatment with tamiflu. -she wears 2 L O2 NC at night for AMAURY - instrucetd to wear 24 hrs/day until decreased by PCP at f/u -go to ER with wosening sx, elevated blood sugars, confusion, lethargy -blood glucose fasting POC 381 -CXR: IMPRESSION: LEFT LOWER LOBE PNEUMONIA. A FOLLOW-UP CHEST X-RAY AFTER APPROPRIATE COURSE OF THERAPY IS ADVISED TO ASCERTAIN RESOLUTION. -O2 92% on RA, increases to 97% on 2 L NC. -ambulation without O2 NC decrease to 92-93% RA, with ekevated heart rate to 120. -recommend ER for admission w/ prednisone and glucose control with insulin. risk of diabetic hyperglycmia is too high w/ co-morbid conditions. -call to [facility] ER which is where they prefer to go bc closer to home. I do recommend closesnt ER which is [place] but they decline. [phone] -will fax note and CXR to them [phone] Attn OG Neal -they are agreeable w this plan. - Differential Dx/Diagnosis Differential Diagnosis/HQI/PQRI: Asthma, Bronchitis, CHF, Influenza, Lower Resp Infection, Sinusitis Provider Diagnosis: Pneumonia and influenza Discharge ED - Sign-Out/Discharge Documenting (check all that apply): Patient Departure All imaging exams completed and their final reports reviewed: Yes - Discharge Plan Condition: Good Disposition: TRANS HIGHER LVL OF CARE FAC Patient Education Materials: Influenza (ED), Pneumonia (ED) Referrals: Dee Ardon [Primary Care Provider] - Additional Instructions: You have + flu and left lower lobe pneumonia. Please makes sure to get a chest xray in 4-6 weeks for follow up even if you feel 100% better to make sure everything has returned to normal on the xray -We talked about recomendation for hopsital admission based on the fact of your significant symptoms of shortness of breath, the low oxygen level that is worsened with walking and the fasting blood sugar of 381. We are unable to give you prednisone because of jl uncontrolled diabetes and risk for a coma because of it. By going to the hospital for admission, you can receiev prednisone with close supervision and insulin managmenet of the blood sugars to keep you in safe range. IV fluids will be beneficial as well as oxygen therapy. I have spoken w/ OG Neal at [facility] which is your hospital of choice. Go directly to the ER, do not stop anywhere. - Billing Disposition and Condition Condition: GOOD Disposition: Trans Higher Lvl of Care Fac
[2019-04-19 11:54] LABS: Influenza A Molecular POSITIVE (Negative)
[2019-04-19 13:42] VITALS: BP 109/87
== END 2019-04-19 13:42 | disposition short-term general hospital (02) ==
LOC: UCCORT 10:39
DX: J11.00 Influenza due to unidentified influenza virus with unspecified type of pneumonia (principal); E11.9 Type 2 diabetes mellitus without complications; I10 Essential (primary) hypertension; Z79.4 Long term (current) use of insulin; Z88.1 Allergy status to other antibiotic agents
CPT/HCPCS: 71046; 99213; G0463